=== PATIENT | male | born 1980 | race Caucasian/White ===

== ENCOUNTER 2017-11-05 13:32 | Emergency (ER) | payer MEDICAID, OTHER ==
[2017-11-05] MEDS ORDERED: Ibuprofen TAB* 800 MG PO ONE (15:41)
--- NOTE | 2017-11-05 16:42 | RAD ---
Indication: Right ankle sprain and swelling. 3 views of the right ankle demonstrate soft tissue swelling. No fracture is noted. Ankle mortise is intact. IMPRESSION: No fracture of the right ankle is noted. Soft tissue swelling is noted.
[2017-11-05 17:04] VITALS: BP 119/87
--- NOTE | 2017-11-06 18:09 | ED ---
Lower Extremity - HPI Summary HPI Summary: Patient here with right ankle injury earlier today. Reports he lost his footing going down the stairs and inverted his ankle. He had swelling and pain and difficulty weightbearing immediately after. He reports he's feeling better since he's been here with his ankle elevated, wrapped in an Mode wrap and being off of it. He's been able to bear some weight however it is still painful. Denies numbness tingling or weakness. Would like ibuprofen for pain. - History of Current Complaint Chief Complaint: EDExtremityLower Stated Complaint: RT ANKLE INJURY Time Seen by Provider: 11/05/17 14:27 Hx Obtained From: Patient Pain Intensity: 2 Pain Scale Used: 0-10 Numeric - Allergies/Home Medications Allergies/Adverse Reactions: Allergies Allergy/AdvReac Type Severity Reaction Status Date / Time No Known Allergies Allergy Verified 11/05/17 13:52 Home Medications: Home Medications Meloxicam(NF) [Mobic(NF)] 15 mg PO DAILY 11/05/17 [History Confirmed 11/05/17] Venlafaxine ER (NF) [Effexor ER (NF)] 150 mg PO DAILY 11/05/17 [History Confirmed 11/05/17] buPROPion SR TAB* [Wellbutrin SR TAB*] 100 mg PO BID 11/05/17 [History Confirmed 11/05/17] PMH/Surg Hx/FS Hx/Imm Hx Previously Healthy: Yes Endocrine/Hematology History: Denies: Hx Anticoagulant Therapy, Hx Blood Disorders, Hx Unexplained Bleeding Infectious Disease History: No Infectious Disease History: Denies: Traveled Outside the [place] in Last 30 Days - Social History Occupation: Unemployed Lives: [facility] Alcohol Use: None Hx Substance Use: Yes Substance Use Type: Reports: Marijuana Substance Use Comment - Amount & Last Used: at [facility] Hx Tobacco Use: Yes Smoking Status (MU): Former Smoker Review of Systems Positive: no symptoms reported Positive: Arthralgia, Edema Positive: Bruising Neurological: Negative Psychological: Normal All Other Systems Reviewed And Are Negative: Yes Physical Exam Triage Information Reviewed: Yes Vital Signs On Initial Exam: Initial Vitals Temp Pulse Resp BP Pulse Ox 98 F 76 14 125/79 96 11/05/17 13:53 11/05/17 13:53 11/05/17 13:53 11/05/17 13:53 11/05/17 13:53 Vital Signs Reviewed: Yes Appearance: Positive: Well-Appearing, No Pain Distress, Well-Nourished Skin: Positive: Warm, Skin Color Reflects Adequate Perfusion, Dry - Mild edema with ecchymosis over her lateral aspect of right ankle - no skin breakdown ENT: Positive: Hearing grossly normal Respiratory/Lung Sounds: Positive: Breath Sounds Present Cardiovascular: Positive: Pulses are Symmetrical in both Upper and Lower Extremities Musculoskeletal: Positive: Strength/ROM Intact, Pain @ - Lateral malleolus and anterior talo fibular ligament tenderness to palpation - no gross deformity or laxity appreciated; fifth metatarsal nontender to palpation Neurological: Positive: Normal, Sensory/Motor Intact, Alert, Oriented to Person Place, Time, CN Intact II-III Psychiatric: Positive: Normal Diagnostics - Vital Signs Vital Signs Temp Pulse Resp BP Pulse Ox 11/05/17 17:03 97 F 76 14 119/87 100 11/05/17 13:53 98 F 76 14 125/79 96 - Laboratory Lab Statement: Any lab studies that have been ordered have been reviewed, and results considered in the medical decision making process. Lower Extremity Course/Dx - Course Course Of Treatment: X-ray negative for fracture dislocation. Patient reports she is feeling better with ibuprofen and is able to bear weight. He will continue to [facility] and follow-up with primary care if symptoms persist beyond 2 weeks. Will return to ED if danger signs or symptoms present. - Diagnoses Provider Diagnoses: Right ankle sprain Discharge - Sign-Out/Discharge Documenting (check all that apply): Discharge/Admit/Transfer - Discharge Plan Condition: Stable Disposition: HOME Patient Education Materials: Ankle Sprain (ED) Referrals: Jamari Kaminski [Primary Care Provider] - Additional Instructions: REST, ICE, ELEVATE AND KEEP MODE wrap IN PLACE as needed for pain and swelling You may take ibuprofen with food alternating with acetaminophen as needed for pain *If pain persists in 2 weeks, follow-up with PCP (if you do not have a PCP, you may follow-up at an urgent care) *If you develop numbness, tingling, weakness, swelling or skin discoloration, loosen MODE wrap and elevate arm for 20 minutes. If symptoms persist, return to ED - Billing Disposition and Condition Condition: STABLE Disposition: HOME
== END 2017-11-05 17:04 | disposition home or self-care (01) ==
LOC: ED 13:32
DX: S93.401A Sprain of unspecified ligament of right ankle, initial encounter (principal); X50.0XXA Overexertion from strenuous movement or load, initial encounter; Y92.9 Unspecified place or not applicable; Z87.891 Personal history of nicotine dependence
CPT/HCPCS: 99281